=== PATIENT | female | born 1960 | race Caucasian/White ===

== ENCOUNTER 2019-03-23 20:54 | Emergency (ER) ==
[2019-03-23 21:04] VITALS: TEMP 99; BMI 27.8
[2019-03-23] MEDS ORDERED: TRANDATE IVP STA (21:23)
[2019-03-23] MEDS ORDERED: VASOTEC IV IVP STA (21:24)
--- NOTE | 2019-03-23 22:26 | ED.PDOC ---
General ED Provider: Dr. JANEL SKY-ER Chief Complaint: Hypertension Stated Complaint: my bp has been up and dayne been to [place] 3 times this week Time Seen by Physician: 20:55 Mode of Arrival: Walk-In Information Source: Patient, Family Exam Limitations: No limitations Primary Care Provider: ELIZABETH MARAVILLA MD Nursing and Triage Documentation Reviewed and Agree: Yes Does patient meet sepsis criteria?: No System Inflammatory Response Syndrome: Not Applicable Sepsis Protocol: For patient's 13 years and over: Temp is 96.8 and below OR 101 and greater Pulse >90 BPM Resp >20/minute Acutely Altered Mental Status Are patient's symptoms suggestive of a new infection, such as: -Pneumonia -Skin, Soft Tissue -Endocarditis -UTI -Bone, Joint Infection -Implantable Device -Acute Abdominal Infection -Wound Infection -Meningitis -Blood Stream Catheter Infection -Unknown Cardiovascular Complaint Exam - Hypertension Complaint/Exam Onset/Duration: today Symptoms Are: Still present Timing: Intermittent Reported B/P Prior to Arrival: 210/94 Aggravating: Reports: None Alleviating: Reports: None Associated Signs and Symptoms: Reports: Recent stress. Denies: Chest pain, Vision changes, Anxiety, Headache, Numbness, Tingling, Weakness, Dizziness, Short of air, Swelling Recent Change in Medications: No A/V Nicking: No Papilledema Present: No JVD Present: No Carotid Bruit Present: No Femoral Pulses Bounding: No Differential Diagnoses: Hypertension Quality Indicator For Non-Traumatic Chest Pain/Syncope: EKG Performed Review of Systems - Review Of Systems Constitutional: Reports: No symptoms Eyes: Reports: No symptoms Ears, Nose, Mouth, Throat: Reports: No symptoms Respiratory: Reports: No symptoms Cardiac: Reports: No symptoms GI: Reports: No symptoms : Reports: No symptoms Musculoskeletal: Reports: No symptoms Skin: Reports: No symptoms Neurological: Reports: No symptoms Endocrine: Reports: No symptoms Hematologic/Lymphatic: Reports: No symptoms All Other Systems: Reviewed and Negative Past Medical History - Past Medical History Previously Healthy: Yes Endocrine: Reports: Unknown Cardiovascular: Reports: Unknown Respiratory: Reports: Unknown Hematological: Reports: Unknown Gastrointestinal: Reports: Unknown Genitourinary: Reports: Unknown Neuro/Psych: Reports: Unknown Musculoskeletal: Reports: Unknown Cancer: Reports: Unknown Last Menstrual Period: 5-6 years - Surgical History General Surgical History: Reports: Unknown - Family History Family History: Reports: Unknown - Social History Smoking Status: Never smoker Hx Substance Use: No Alcohol Screening: None - Immunizations Tetanus Shot up to Date: Yes Physical Exam - Physical Exam Appearance: Well-appearing, No pain distress, Well-nourished Eyes: ADELA, EOMI, Conjunctiva clear ENT: Ears normal, Nose normal, Oropharynx normal Neck: Supple Respiratory: Airway patent, Breath sounds clear, Breath sounds equal, Respirations nonlabored Cardiovascular: RRR, Pulses normal, No rub, No murmur GI/: Soft, Nontender, No masses, Bowel sounds normal, No Organomegaly Musculoskeletal: Normal strength Skin: Warm, Dry, Normal color Neurological: Sensation intact, Motor intact, Reflexes intact, Cranial nerves intact, Alert, Oriented Psychiatric: Affect appropriate, Mood appropriate, Anxious Interpretation - EKG Interpretation Time of EKG #1: 22:26 Rate: Normal Rhythm: Sinus Ectopy: None [place]: NL ST Segment: Normal Interpretation: nsr Re-Evaluation - Re-Evaluation Time of Re-Evaluation: 22:26 Status: Improved Vital Signs Stable: Yes Pain Level: 0 Appearance: NAD Lungs: Clear Skin: Warm and Dry Neuro: Alert and Oriented X3 CV: RRR Additional Comments: bp 160/80---no weakness or chest pain Critical Care Note - Critical Care Note Total Time (mins): 0 Course - Course Hematology/Chemistry: 03/23/19 21:30 03/23/19 21:30 Orders, Labs, Meds: Lab Review 03/23/19 03/23/19 03/23/19 21:30 21:30 21:30 WBC 10.92 H RBC 4.82 Hgb 14.1 Hct 43.1 MCV 89.4 MCH 29.3 MCHC 32.7 RDW Coeff of Allan 13.2 Plt Count 423 Immature Gran % (Auto) 0.2 Neut % (Auto) 60.4 Lymph % (Auto) 26.4 [place] % (Auto) 10.2 H Eos % (Auto) 2.5 Baso % (Auto) 0.3 Immature Gran # (Auto) 0.0 Neut # (Auto) 6.6 Lymph # (Auto) 2.9 [place] # (Auto) 1.1 Eos # (Auto) 0.3 Baso # (Auto) 0.0 Sodium 141.7 Potassium 3.43 L Chloride 102.8 Carbon Dioxide 26.2 Anion Gap 16.13 BUN 6.2 L Creatinine 0.82 Estimated GFR (MDRD) 72.00 BUN/Creatinine Ratio 7.56 Glucose 142.6 H Calcium 9.89 Total Bilirubin 0.49 AST 58.6 H ALT 59.9 H Alkaline Phosphatase 90.7 Total Creatine Kinase 92.2 Troponin I < 0.012 Total Protein 9.19 H Albumin 4.93 Globulin 4.26 Albumin/Globulin Ratio 1.15 TSH Pending Free T4 1.84 Urine Color Urine Clarity Urine pH Ur Specific Odd Urine Protein Urine Glucose (UA) Urine Ketones Urine Blood Urine Nitrite Urine Bilirubin Urine Urobilinogen Ur Leukocyte Esterase Urine Microscopic WBC Ur Squamous Epith Cells Ur Transition Epith Cell Urine Mucus 03/23/19 21:35 WBC RBC Hgb Hct MCV MCH MCHC RDW Coeff of Allan Plt Count Immature Gran % (Auto) Neut % (Auto) Lymph % (Auto) [place] % (Auto) Eos % (Auto) Baso % (Auto) Immature Gran # (Auto) Neut # (Auto) Lymph # (Auto) [place] # (Auto) Eos # (Auto) Baso # (Auto) Sodium Potassium Chloride Carbon Dioxide Anion Gap BUN Creatinine Estimated GFR (MDRD) BUN/Creatinine Ratio Glucose Calcium Total Bilirubin AST ALT Alkaline Phosphatase Total Creatine Kinase Troponin I Total Protein Albumin Globulin Albumin/Globulin Ratio TSH Free T4 Urine Color Yellow Urine Clarity Clear Urine pH 6.0 Ur Specific Odd 1.010 Urine Protein Negative Urine Glucose (UA) Negative Urine Ketones Negative Urine Blood Negative Urine Nitrite Negative Urine Bilirubin Negative Urine Urobilinogen 0.2 Ur Leukocyte Esterase Trace Urine Microscopic WBC 2-5 Ur Squamous Epith Cells 5-10 Ur Transition Epith Cell 0-2 Urine Mucus 1+ Orders Category Date Time Status EKG-(ED ONLY) Stat CARDIO 03/23/19 21:22 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] .ONCE EMERGENCY 03/23/19 21:23 Active IV [ED IV/MEDIPORT/POWERPORT] .ONCE EMERGENCY 03/23/19 21:23 Active CBC W/ AUTO DIFF Stat LAB 03/23/19 21:30 Completed COMPREHENSIVE METABOLIC PANEL Stat LAB 03/23/19 21:30 Results CREATINE KINASE Stat LAB 03/23/19 21:30 Results FREE T4 (FREE THYROXINE) Stat LAB 03/23/19 21:30 Completed THYROID STIMULATING HORMONE Stat LAB 03/23/19 21:30 Results TROPONIN I Stat LAB 03/23/19 21:30 Results URINALYSIS C & S IF INDICATED Stat LAB 03/23/19 21:35 Completed 0.9 % Sodium Chloride [Saline Flush] MEDS 03/23/19 21:23 Ordered 1 syr IVF PRN PRN Enalaprilat Dihydrate [Vasotec IV] MEDS 03/23/19 21:24 Discontinued 5 mg IVP ONCE STA Labetalol HCl [Trandate] MEDS 03/23/19 21:23 Discontinued 20 mg IVP ONCE STA Medications Generic Name Dose Route Start Last Admin Trade Name Freq PRN Reason Stop Dose Admin Sodium Chloride 1 syr 03/23/19 21:23 03/23/19 21:47 Saline Flush IVF 1 syr PRN PRN Administration To flush IV Discontinued Medications Generic Name Dose Route Start Last Admin Trade Name Freq PRN Reason Stop Dose Admin Enalaprilat 5 mg 03/23/19 21:24 03/23/19 21:44 Vasotec Iv IVP 03/23/19 21:25 5 mg ONCE STA Administration Labetalol HCl 20 mg 03/23/19 21:23 03/23/19 21:39 Trandate IVP 03/23/19 21:24 20 mg ONCE STA Administration Vital Signs: Temp Pulse Resp BP Pulse Ox 03/23/19 20:54 99 F 107 H 20 214/94 H 95 JOHNNA Risk Score JOHNNA Risk Score: Risk Score Odds of by 30D 0 0.1 (0.1-0.2) 1 0.3 (0.2-0.3) 2 0.4 (0.3-0.5) 3 0.7 (0.6-0.9) 4 1.2 (1.0-1.5) 5 2.2 (1.9-2.6) 6 3.0 (2.5-3.6) 7 4.8 (3.8-6.1) Departure - Departure Time of Disposition: 22:27 Disposition: HOME SELF-CARE Discharge Problem: HTN (hypertension) Qualifiers: Hypertension type: unspecified Qualified Code(s): I10 - Essential (primary) hypertension Instructions: Hypertensive Crisis (ED) Condition: Good Pt referred to PMD for follow-up: Yes IPMP verified?: No Additional Instructions: normodyne 100mg tid #90---see your pcp for consideration of w/u for renovascular hypertension Allergies/Adverse Reactions: Allergies No Known Allergies Allergy (Unverified 03/23/19 21:15) Home Medications: Ambulatory Orders Amoxicillin/Potassium Clav [Augmentin 875-125 mg Tab] 1 tab PO BID 03/23/19 Lisinopril 10 mg PO DAILY 03/23/19 Potassium Chloride 10 meq PO BID 03/23/19 Promethazine HCl 25 mg PO Q6HR PRN 03/23/19 Sertraline HCl 50 mg PO DAILY 03/23/19 Disposition Discussed With: Patient, Family
[2019-03-24 04:39] VITALS: BP 148/81
== END 2019-03-23 22:36 | disposition home or self-care (01) ==
LOC: ED 20:54
DX: I10 Essential (primary) hypertension (principal); Z79.899 Other long term (current) drug therapy
CPT/HCPCS: 36415; 80053; 81001; 82550; 84439; 84443; 84484; 85025; 93005; 93010; 96374; 96375; 99283

== ENCOUNTER 2019-03-24 02:42 | Emergency (ER) ==
[2019-03-24 02:49] VITALS: TEMP 98.2; BMI 29.0
[2019-03-24] MEDS ORDERED: ATIVAN PO STA (03:06)
--- NOTE | 2019-03-24 03:27 | ED.PDOC ---
General ED Provider: Dr. JANEL SKY-ER Chief Complaint: Non-specific Complaint Stated Complaint: my bp has high but its low now Time Seen by Physician: 02:45 Mode of Arrival: Walk-In Information Source: Patient, Family Exam Limitations: No limitations Primary Care Provider: ELIZABETH MARAVILLA MD Nursing and Triage Documentation Reviewed and Agree: Yes Does patient meet sepsis criteria?: No System Inflammatory Response Syndrome: Not Applicable Sepsis Protocol: For patient's 13 years and over: Temp is 96.8 and below OR 101 and greater Pulse >90 BPM Resp >20/minute Acutely Altered Mental Status Are patient's symptoms suggestive of a new infection, such as: -Pneumonia -Skin, Soft Tissue -Endocarditis -UTI -Bone, Joint Infection -Implantable Device -Acute Abdominal Infection -Wound Infection -Meningitis -Blood Stream Catheter Infection -Unknown Cardiovascular Complaint Exam - Hypertension Complaint/Exam Onset/Duration: a few hours Symptoms Are: Still present Timing: Constant Aggravating: Reports: None Alleviating: Reports: None Associated Signs and Symptoms: Reports: Anxiety, Recent stress Cardiac Risk Factors: Reports: Hypertension Recent Change in Medications: Yes A/V Nicking: No Papilledema Present: No JVD Present: No Carotid Bruit Present: No Femoral Pulses Bounding: No Differential Diagnoses: Eclampsia, Hypertension Review of Systems - Review Of Systems Constitutional: Reports: No symptoms Eyes: Reports: No symptoms Ears, Nose, Mouth, Throat: Reports: No symptoms Respiratory: Reports: No symptoms Cardiac: Reports: No symptoms GI: Reports: No symptoms : Reports: No symptoms Musculoskeletal: Reports: No symptoms Skin: Reports: No symptoms Neurological: Reports: Anxiety Endocrine: Reports: No symptoms Hematologic/Lymphatic: Reports: No symptoms All Other Systems: Reviewed and Negative Past Medical History - Past Medical History Previously Healthy: Yes Endocrine: Reports: Unknown Cardiovascular: Reports: Unknown Respiratory: Reports: Unknown Hematological: Reports: Unknown Gastrointestinal: Reports: Unknown Genitourinary: Reports: Unknown Neuro/Psych: Reports: Unknown Musculoskeletal: Reports: Unknown Cancer: Reports: Unknown Last Menstrual Period: 7-8 YEARS AGO - Surgical History General Surgical History: Reports: Unknown - Family History Family History: Reports: Unknown - Social History Smoking Status: Never smoker Hx Substance Use: No Alcohol Screening: None - Immunizations Tetanus Shot up to Date: Yes Physical Exam - Physical Exam Appearance: Well-appearing, No pain distress, Well-nourished Eyes: ADELA, EOMI, Conjunctiva clear ENT: Ears normal, Nose normal, Oropharynx normal Neck: Supple Respiratory: Airway patent, Breath sounds clear, Breath sounds equal, Respirations nonlabored Cardiovascular: RRR, Pulses normal, No rub, No murmur GI/: Soft, Nontender, No masses, Bowel sounds normal, No Organomegaly Musculoskeletal: Normal strength, ROM intact, No edema, No calf tenderness Skin: Warm Neurological: Sensation intact Psychiatric: Affect appropriate, Anxious Critical Care Note - Critical Care Note Total Time (mins): 0 Course - Course Orders, Labs, Meds: Orders Category Date Time Status Lorazepam [Ativan] MEDS 03/24/19 03:06 Discontinued 0.5 mg PO ONCE STA Medications Discontinued Medications Generic Name Dose Route Start Last Admin Trade Name Freq PRN Reason Stop Dose Admin Lorazepam 0.5 mg 03/24/19 03:06 03/24/19 03:11 Ativan PO 03/24/19 03:07 0.5 mg ONCE STA Administration Vital Signs: Temp Pulse Resp BP Pulse Ox 03/24/19 02:43 98.2 F 89 20 185/80 H 96 JOHNNA Risk Score JOHNNA Risk Score: Risk Score Odds of by 30D 0 0.1 (0.1-0.2) 1 0.3 (0.2-0.3) 2 0.4 (0.3-0.5) 3 0.7 (0.6-0.9) 4 1.2 (1.0-1.5) 5 2.2 (1.9-2.6) 6 3.0 (2.5-3.6) 7 4.8 (3.8-6.1) Departure - Departure Time of Disposition: 03:27 Disposition: TSF SHORT-TRM HOSP Discharge Problem: HTN (hypertension) Qualifiers: Hypertension type: unspecified Qualified Code(s): I10 - Essential (primary) hypertension Instructions: Hypertensive Crisis (ED) Condition: Good Pt referred to PMD for follow-up: Yes IPMP verified?: No Allergies/Adverse Reactions: Allergies No Known Allergies Allergy (Verified 03/24/19 02:48) Home Medications: Ambulatory Orders Lisinopril 10 mg PO DAILY 03/23/19 Potassium Chloride 10 meq PO BID 03/23/19 Promethazine HCl 25 mg PO Q6HR PRN 03/23/19 Sertraline HCl 50 mg PO DAILY 03/23/19 Transfer Form Completed: Yes Disposition Discussed With: Patient, Family
[2019-03-24] MEDS ORDERED: TRANDATE IVP STA (03:32)
[2019-03-24] MEDS ORDERED: VASOTEC IV IVP STA (03:32)
[2019-03-24 05:11] VITALS: BP 142/76
== END 2019-03-24 05:02 | disposition short-term general hospital (02) ==
LOC: ED 02:42
DX: I10 Essential (primary) hypertension (principal)
CPT/HCPCS: 96374; 96375; 99285

== ENCOUNTER 2019-03-24 04:54 | Outpatient (CLI) ==
[2019-03-24 02:49] VITALS: BMI 29.0
== END 2019-03-24 05:24 | disposition short-term general hospital (02) ==
LOC: AMBL 04:54
PROVIDERS: ATTEND Emergency Medicine
DX: I10 Essential (primary) hypertension (principal)

== ENCOUNTER 2019-03-27 21:10 | Emergency (ER) ==
[2019-03-27 21:17] VITALS: BP 197/100; TEMP 99; BMI 28.5
[2019-03-27] MEDS ORDERED: TRANDATE IVP STA (21:35)
[2019-03-27] MEDS ORDERED: ATIVAN IVP STA (21:36)
--- NOTE | 2019-03-27 21:47 | ED.PDOC ---
General ED Provider: Dr. JANEL SKY-SOHEILA Chief Complaint: Hypertension Stated Complaint: my bp is up Time Seen by Physician: 21:15 Mode of Arrival: Walk-In Information Source: Patient Exam Limitations: No limitations Primary Care Provider: JANEL RED Nursing and Triage Documentation Reviewed and Agree: Yes Does patient meet sepsis criteria?: No System Inflammatory Response Syndrome: Not Applicable Sepsis Protocol: For patient's 13 years and over: Temp is 96.8 and below OR 101 and greater Pulse >90 BPM Resp >20/minute Acutely Altered Mental Status Are patient's symptoms suggestive of a new infection, such as: -Pneumonia -Skin, Soft Tissue -Endocarditis -UTI -Bone, Joint Infection -Implantable Device -Acute Abdominal Infection -Wound Infection -Meningitis -Blood Stream Catheter Infection -Unknown Cardiovascular Complaint Exam - Hypertension Complaint/Exam Onset/Duration: see triage Symptoms Are: Still present Aggravating: Reports: None Alleviating: Reports: None Associated Signs and Symptoms: Reports: Anxiety. Denies: Chest pain, Vision changes, Recent stress, Headache, Numbness, Tingling, Weakness, Dizziness, Short of air, Swelling Recent Change in Medications: Yes A/V Nicking: No Papilledema Present: No JVD Present: No Carotid Bruit Present: No Femoral Pulses Bounding: No Differential Diagnoses: Hypertension Review of Systems - Review Of Systems Constitutional: Reports: No symptoms Eyes: Reports: No symptoms Ears, Nose, Mouth, Throat: Reports: No symptoms Respiratory: Reports: No symptoms Cardiac: Reports: Palpitations GI: Reports: No symptoms : Reports: No symptoms Musculoskeletal: Reports: No symptoms Skin: Reports: No symptoms Neurological: Reports: No symptoms Endocrine: Reports: No symptoms Hematologic/Lymphatic: Reports: No symptoms All Other Systems: Reviewed and Negative Past Medical History - Past Medical History Previously Healthy: Yes Endocrine: Reports: Unknown Cardiovascular: Reports: Unknown Respiratory: Reports: Unknown Hematological: Reports: Unknown Gastrointestinal: Reports: Unknown Genitourinary: Reports: Unknown Neuro/Psych: Reports: Unknown Musculoskeletal: Reports: Unknown Cancer: Reports: Unknown Last Menstrual Period: 6 YEARS AGO - Surgical History General Surgical History: Reports: Unknown - Family History Family History: Reports: Unknown - Social History Smoking Status: Never smoker Hx Substance Use: No Alcohol Screening: None - Immunizations Tetanus Shot up to Date: Yes Physical Exam - Physical Exam Appearance: Well-appearing, No pain distress, Well-nourished Eyes: ADELA, EOMI, Conjunctiva clear ENT: Ears normal, Nose normal, Oropharynx normal Neck: Supple Respiratory: Airway patent, Breath sounds clear, Breath sounds equal, Respirations nonlabored Cardiovascular: Tachycardia GI/: Soft, Nontender, No masses, Bowel sounds normal, No Organomegaly Musculoskeletal: Normal strength, ROM intact, No edema, No calf tenderness Skin: Warm, Dry, Normal color Neurological: Sensation intact, Motor intact, Reflexes intact, Cranial nerves intact, Alert, Oriented Psychiatric: Affect appropriate, Mood appropriate, Anxious Re-Evaluation - Re-Evaluation Time of Re-Evaluation: 22:04 Status: Improved Vital Signs Stable: Yes Pain Level: 0 Appearance: NAD Lungs: Clear Skin: Warm and Dry Neuro: Alert and Oriented X3 CV: RRR Additional Comments: bp 140/80---feeling better Critical Care Note - Critical Care Note Total Time (mins): 0 Course - Course Hematology/Chemistry: 03/27/19 21:40 Orders, Labs, Meds: Lab Review 03/27/19 21:40 Sodium 139.4 Potassium 3.94 Chloride 103.5 Carbon Dioxide 22.5 Anion Gap 17.34 BUN 16.5 Creatinine 0.69 Estimated GFR (MDRD) 88.00 BUN/Creatinine Ratio 23.91 Glucose 125.3 H Calcium 9.46 Orders Category Date Time Status ED IV/MEDIPORT/POWERPORT .ONCE EMERGENCY 03/27/19 21:35 Active BMP [BASIC METABOLIC PANEL] Stat LAB 03/27/19 21:40 Completed 0.9 % Sodium Chloride [Saline Flush] MEDS 03/27/19 21:35 Ordered 1 syr IVF PRN PRN Labetalol HCl [Trandate] MEDS 03/27/19 21:35 Discontinued 20 mg IVP ONCE STA Lorazepam [Ativan] MEDS 03/27/19 21:36 Discontinued 1 mg IVP ONCE STA Medications Generic Name Dose Route Start Last Admin Trade Name Freq PRN Reason Stop Dose Admin Sodium Chloride 1 syr 03/27/19 21:35 03/27/19 21:53 Saline Flush IVF 1 syr PRN PRN Administration To flush IV Discontinued Medications Generic Name Dose Route Start Last Admin Trade Name Freq PRN Reason Stop Dose Admin Labetalol HCl 20 mg 03/27/19 21:35 03/27/19 21:50 Trandate IVP 03/27/19 21:36 20 mg ONCE STA Administration Lorazepam 1 mg 03/27/19 21:36 03/27/19 21:48 Ativan IVP 03/27/19 21:37 1 mg ONCE STA Administration Vital Signs: Temp Pulse Resp BP Pulse Ox 03/27/19 21:10 99 F 137 H 24 197/100 H 97 JOHNNA Risk Score JOHNNA Risk Score: Risk Score Odds of by 30D 0 0.1 (0.1-0.2) 1 0.3 (0.2-0.3) 2 0.4 (0.3-0.5) 3 0.7 (0.6-0.9) 4 1.2 (1.0-1.5) 5 2.2 (1.9-2.6) 6 3.0 (2.5-3.6) 7 4.8 (3.8-6.1) Departure - Departure Time of Disposition: 22:05 Disposition: HOME SELF-CARE Discharge Problem: HTN (hypertension) Qualifiers: Hypertension type: essential hypertension Qualified Code(s): I10 - Essential ( primary) hypertension Instructions: Chronic Hypertension (ED) Condition: Good Pt referred to PMD for follow-up: Yes IPMP verified?: No Additional Instructions: add lopressor 25mg bid #60---ativan 0.5mg daily prn anxiety#15--f/u wtih pcp Allergies/Adverse Reactions: Allergies No Known Allergies Allergy (Verified 03/27/19 21:17) Home Medications: Ambulatory Orders Lisinopril 20 mg PO DAILY 03/23/19 Potassium Chloride 10 meq PO BID 03/23/19 Sertraline HCl 50 mg PO DAILY 03/23/19 Amlodipine Besylate [Norvasc] 5 mg PO BID 03/27/19 Hydroxyzine Pamoate 25 mg PO TID PRN 03/27/19 Promethazine HCl [Phenergan Supp] 25 mg RC Q6H PRN 03/27/19 Disposition Discussed With: Patient, Family
== END 2019-03-27 22:29 | disposition home or self-care (01) ==
LOC: ED 21:10
DX: I10 Essential (primary) hypertension (principal); Z79.899 Other long term (current) drug therapy
CPT/HCPCS: 36415; 80048; 96374; 96375; 99283

== ENCOUNTER 2019-05-06 12:10 | Emergency (ER) ==
[2019-05-06 12:15] VITALS: BP 117/71; TEMP 98.1; BMI 27.1
[2019-05-06] MEDS ORDERED: DECADRON 4 MG/ML SDV IM STA (12:41)
[2019-05-06] MEDS ORDERED: DUONEB NEB STA (12:41)
--- NOTE | 2019-05-06 13:23 | DI ---
EXAM: Two views of the chest. History: Cough. Findings: Heart size is normal. No focal consolidation. No appreciable pleural fluid and no pneumo thorax. No acute osseous abnormalities. Impression: No acute cardiopulmonary process
--- NOTE | 2019-05-06 13:41 | CT ---
EXAM: CT of the abdomen pelvis without contrast History: Abdominal pain. Comparison: None available. Technique: Multiplanar CT images through the abdomen pelvis were obtained without the administration of IV contrast Findings: Lung bases are clear. No acute osseous abnormalities. The liver is fatty. No gallstones identified by CT. Spleen is unremarkable. No renal stones and no hydronephrosis. No peripancreatic inflammation. Adrenal glands are unremarkable. No bowel obstruc tion. The appendix is normal. No bladder wall thickening. Adnexal structures appear appropriate fo r patient's age. No free air and no ascites. No perirectal inflammation. No abdominal aortic aneur ysm. No pathologically enlarged lymph nodes. No inflammatory stranding. Impression: 1. No acute intra-abdominal or pelvic process. 2. Hepatic steatosis
--- NOTE | 2019-05-06 14:16 | ED.PDOC ---
General ED Provider: Dr. APRYL GARVIN Chief Complaint: Nausea/Vomiting Stated Complaint: Congestion; denies shortness of breath; some abdominal discomfort Time Seen by Physician: 12:10 Mode of Arrival: Walk-In Information Source: Patient Exam Limitations: No limitations Primary Care Provider: ELIZABETH MARAVILLA MD Nursing and Triage Documentation Reviewed and Agree: Yes Does patient meet sepsis criteria?: No System Inflammatory Response Syndrome: Not Applicable Sepsis Protocol: For patient's 13 years and over: Temp is 96.8 and below OR 101 and greater Pulse >90 BPM Resp >20/minute Acutely Altered Mental Status Are patient's symptoms suggestive of a new infection, such as: -Pneumonia -Skin, Soft Tissue -Endocarditis -UTI -Bone, Joint Infection -Implantable Device -Acute Abdominal Infection -Wound Infection -Meningitis -Blood Stream Catheter Infection -Unknown Respiratory Complaint Exam - Respiratory Complaint/Exam Onset/Duration: 3 days history of cough, congestion, nausea with no vomiting Symptoms Are: Still present Timing: Intermittent Initial Severity: Mild Current Severity: Mild Location: Nose, Throat, Chest Character: Reports: Non-productive cough Aggravating: Reports: URI Alleviating: Reports: Spontaneous resolution Associated Signs and Symptoms: Reports: URI, Nasal congestion. Denies: Rapid breathing, Dyspnea, Fever, Chills, Chest pain, Pleuritic chest pain, Wheezing, Hemoptysis, Dizziness, Calf pain, Calf swelling, Edema, Hoarseness, Sinus discomfort, Vomiting, Sore throat, Weight loss, Decreased oral intake, Increased thirst, Increased appetite, Increased urination Related Surgical History: Reports: None Pulmonary Embolism Risk Factors: None Cardiac Risk Factors: Reports: None Pseudomonas Risk Factors: Reports: None Tuberculosis Risk Factors: Reports: None Status Asthmaticus Risk Factors: Reports: None Home Oxygen Use: No Recent Stress Test: No Recent Echo/LV Function: No Current Antibiotic Use: Yes Current Asthma Medication Use: No Respiratory Distress: None Inadequate Respiratory Effort: No Dysphagia Present: No Stridor Present: No JVD Present: No Accessory Muscle Use: No Retractions: Not Present Diminished Breath Sounds: No Sinus Tenderness: None Grunting Respirations: No Kussmaul Respirations: No Differential Diagnoses: Pneumonia, Bronchitis, URI, Lower Resp. Infection Review of Systems - Review Of Systems Constitutional: Reports: Malaise Eyes: Reports: No symptoms Ears, Nose, Mouth, Throat: Reports: No symptoms Respiratory: Reports: Cough Cardiac: Reports: No symptoms GI: Reports: Abdominal pain, Nausea : Reports: No symptoms Musculoskeletal: Reports: No symptoms Skin: Reports: No symptoms Neurological: Reports: No symptoms Endocrine: Reports: No symptoms Hematologic/Lymphatic: Reports: No symptoms All Other Systems: Reviewed and Negative Past Medical History - Past Medical History Previously Healthy: Yes Endocrine: Reports: Unknown Cardiovascular: Reports: Unknown Respiratory: Reports: Unknown Hematological: Reports: Unknown Gastrointestinal: Reports: Unknown Genitourinary: Reports: Unknown Neuro/Psych: Reports: Unknown Musculoskeletal: Reports: Unknown Cancer: Reports: Unknown Last Menstrual Period: Menopausal - Surgical History General Surgical History: Reports: Unknown - Family History Family History: Reports: Unknown - Social History Smoking Status: Never smoker Hx Substance Use: No Alcohol Screening: None - Immunizations Tetanus Shot up to Date: Yes Physical Exam - Physical Exam Appearance: Well-appearing, No pain distress, Well-nourished Eyes: ADELA, EOMI, Conjunctiva clear ENT: Ears normal, Nose normal, Oropharynx normal Respiratory: Airway patent, Breath sounds clear, Breath sounds equal, Respirations nonlabored Cardiovascular: RRR, Pulses normal, No rub, No murmur GI/: Soft, Nontender, No masses, Bowel sounds normal, No Organomegaly Musculoskeletal: Normal strength, ROM intact, No edema, No calf tenderness Skin: Warm, Dry, Normal color Neurological: Sensation intact, Motor intact, Reflexes intact, Cranial nerves intact, Alert, Oriented Psychiatric: Affect appropriate, Mood appropriate Interpretation - Radiology Interpretation Radiology Interpretation By: Radiologist Radiology Results: No acute changes Exam Interpreted: CT Scan Re-Evaluation - Re-Evaluation Time of Re-Evaluation: 14:19 (improved) Status: Improved Vital Signs Stable: No Pain Level: 0 Appearance: NAD Lungs: Clear Skin: Warm and Dry Neuro: Alert and Oriented X3 CV: RRR Critical Care Note - Critical Care Note Total Time (mins): 0 Course - Course Hematology/Chemistry: 05/06/19 12:48 05/06/19 12:48 Orders, Labs, Meds: Lab Review 05/06/19 05/06/19 12:48 12:48 WBC 5.21 RBC 4.31 Hgb 12.5 Hct 37.6 MCV 87.2 MCH 29.0 MCHC 33.2 RDW Coeff of Allan 12.9 Plt Count 275 Immature Gran % (Auto) 0.4 Neut % (Auto) 52.4 Lymph % (Auto) 34.7 Webb % (Auto) 12.3 H Eos % (Auto) 0.0 Baso % (Auto) 0.2 Immature Gran # (Auto) 0.0 Neut # (Auto) 2.7 Lymph # (Auto) 1.8 Webb # (Auto) 0.6 Eos # (Auto) 0.0 Baso # (Auto) 0.0 Sodium 134.8 Potassium 3.25 L Chloride 100.1 Carbon Dioxide 25.0 Anion Gap 12.95 BUN 9.9 Creatinine 0.80 Estimated GFR (MDRD) 74.00 BUN/Creatinine Ratio 12.37 Glucose 133.7 H Calcium 8.62 Total Bilirubin 0.53 AST 65.4 H ALT 31.3 Alkaline Phosphatase 62.0 Total Protein 8.32 H Albumin 3.98 Globulin 4.34 Albumin/Globulin Ratio 0.91 Orders Category Date Time Status NEBULIZER TREATMENT Stat CARDIO 05/06/19 12:41 Completed CBC W/ AUTO DIFF Stat LAB 05/06/19 12:48 Completed COMPREHENSIVE METABOLIC PANEL Stat LAB 05/06/19 12:48 Completed URINALYSIS C & S IF INDICATED Stat LAB 05/06/19 12:41 Uncollected Dexamethasone 4 mg/ml Inj [Decadron 4 mg/ml Sdv] MEDS 05/06/19 12:41 Discontinued 4 mg IM ONCE STA Ipratropium/Albuterol Neb [Duoneb] MEDS 05/06/19 12:41 Discontinued 1 vial NEB ONCE STA CHEST, 2 VIEWS PA & LAT Stat RADS 05/06/19 12:[address] ABDOMEN/PELVIS WO CONTRAST Stat RADS 05/06/19 12:42 Completed Medications Discontinued Medications Generic Name Dose Route Start Last Admin Trade Name Freq PRN Reason Stop Dose Admin Albuterol/Ipratropium 1 vial 05/06/19 12:41 05/06/19 12:48 Duoneb NEB 05/06/19 12:42 1 vial ONCE STA Administration Dexamethasone Sodium Phosphate 4 mg 05/06/19 12:41 05/06/19 12:54 Decadron 4 Mg/Ml Sdv IM 05/06/19 12:42 4 mg ONCE STA Administration Vital Signs: Temp Pulse Resp BP Pulse Ox 05/06/19 12:10 98.1 F 78 16 117/71 98 Departure - Departure Time of Disposition: 14:20 Disposition: HOME SELF-CARE Discharge Problem: Cough, Nausea, Hypokalemia Instructions: Hypokalemia (ED) Condition: Good Pt referred to PMD for follow-up: Yes IPMP verified?: No Additional Instructions: Please call your Family Physician as soon as possible to schedule a follow-up appointment. Allergies/Adverse Reactions: Allergies No Known Allergies Allergy (Verified 05/06/19 12:23) Home Medications: Ambulatory Orders Lisinopril 20 mg PO DAILY 03/23/19 Potassium Chloride 10 meq PO BID 03/23/19 Amlodipine Besylate [Norvasc] 5 mg PO BID 03/27/19 Hydroxyzine Pamoate 25 mg PO TID PRN 03/27/19 Aspirin [Aspirin Chewable] 81 mg PO DAILYWM 05/06/19 Citalopram Hydrobromide [Celexa] 20 mg PO DAILY 05/06/19 Disposition Discussed With: Patient, Family
== END 2019-05-06 14:28 | disposition home or self-care (01) ==
LOC: ED 12:10
DX: E87.6 Hypokalemia (principal); R11.0 Nausea; R05 Cough
CPT/HCPCS: 36415; 80053; 85025; 94640; 96372; 99283